=== PATIENT | female | born 1980 | race African-American/Black ===

== ENCOUNTER 2022-06-14 00:21 | Emergency (ER) | payer MEDICAID ==
[~2022-06-14] VITALS: Ht 172.7 cm; Wt 61.0 kg
[2022-06-14] MEDS ORDERED: OLANZAPINE 10 MG/VIAL IM ONE ×2 (01:00→05:00)
[2022-06-14] MEDS ORDERED: ACETAMINOPHEN 325MG TABLET PO ONE (01:45)
[2022-06-14] MEDS ORDERED: IBUP-2029 MT (07:27)
[2022-06-14] MEDS ORDERED: IBUPROFEN 800MG TABLET PO ONE (07:30)
== END 2022-06-14 11:55 | disposition home or self-care (01) ==
LOC: EDSEX 00:21 → ER 00:21
DX: S52.502A Unspecified fracture of the lower end of left radius, initial encounter for closed fracture (principal); S00.83XA Contusion of other part of head, initial encounter; S42.402A Unspecified fracture of lower end of left humerus, initial encounter for closed fracture; R45.1 Restlessness and agitation; R51.9 Headache, unspecified; V09.20XA Pedestrian injured in traffic accident involving unspecified motor vehicles, initial encounter; Y93.89 Activity, other specified; Y92.89 Other specified places as the place of occurrence of the external cause; Y99.8 Other external cause status
CPT/HCPCS: 29105; 70450; 73060; 73070; 73100; 74176; 96372; 99284; J3490

== ENCOUNTER 2022-10-22 04:02 | Emergency (ER) | payer MEDICAID ==
[~2022-10-22] VITALS: Ht 172.7 cm; Wt 68.0 kg
[~2022-10-22 04:02] MED LIST: IBUP-2029 MT
[2022-10-22 04:06] VITALS: BP 129/76
== END 2022-10-22 10:22 | disposition left against medical advice (07) ==
LOC: ER 04:02
DX: Z53.21 Procedure and treatment not carried out due to patient leaving prior to being seen by health care provider (principal)